=== PATIENT | female | born 1960 | race Caucasian/White ===

== ENCOUNTER 2022-11-22 07:32 | Outpatient (REF) | payer BC, SELFPAY ==
[2022-11-22 13:38] LABS: MANUAL DIFF FLAG NO
[2022-11-22 13:57] LABS: Basophils Absolute Auto 0.1 X10*3/uL (0.0-0.2); Eosinophils Absolute Auto 0.1 X10*3/uL (0.0-0.4); Eosinophils Percent Auto 1.4 % (0-4); Hematocrit 39.4 % (37.0-47.0); Hemoglobin 13.1 g/dl (12.0-16.0); Lymphocytes Absolute Auto 1.8 X10*3/uL (1.2-4.9); Lymphocytes Percent Auto 35.8 % (20-40); Mean Corpuscular HGB Conc 33.2 g/dl (31.0-35.0); Mean Corpuscular Hemoglobin 30.8 pg (27.0-33.0); Mean Corpuscular Volume 92.5 fL (80.0-98.0); Mean Platelet Volume 10.1 fL (9.4-12.3); Monocytes Absolute Auto 0.5 X10*3/uL (0.1-1.2); Monocytes Percent Auto 9.3 % (2-11); Neutrophils Absolute Auto 2.6 x10*3/uL (2.0-8.3); Neutrophils Percent Auto 52.5 % (45-73); Platelet Count 248 X10*3/uL (160-400); Red Blood Count 4.26 X10*6/uL (4.20-5.50); Red Cell Distribution Width 12.4 % (11.0-16.0)
[2022-11-22 14:14] LABS: Alanine Aminotransferase 14 U/L (0-31); Albumin Level 4.4 g/dL (3.5-5.0); Alkaline Phosphatase 77 U/L (39-117); Anion Gap 13 (12-20); Aspartate Amino Transferase 18 U/L (5-31); Bilirubin Total 0.4 mg/dL (0.0-1.0); Blood Urea Nitrogen 16 mg/dL (9-16); Calcium 9.9 mg/dL (8.4-10.2); Carbon Dioxide 27 mmol/L (22-29); Chloride 105 mmol/L (96-108); Cholesterol 228 mg/dL (<200); Estimated Glomerular Filt Rate > 60; Glucose Random 93 mg/dL (60-115); HDL Cholesterol 70 mg/dL (>40); LDL Cholesterol Calculated 148 mg/dL (<100); Potassium 3.7 mmol/L (3.3-5.1); Sodium 141 mmol/L (135-145); Total Protein 7.1 g/dL (6.5-8.0); Triglycerides 52 mg/dL (<150)
[2022-11-22 14:24] LABS: Vitamin D 25-OH Total 50.5 ng/mL (>30)
== END 2022-11-22 07:33 | disposition home or self-care (01) ==
LOC: HO.MANLDS 07:32
PROVIDERS: Visit Provider Internal Medicine
DX: Z00.00 Encounter for general adult medical examination without abnormal findings (principal)
CPT/HCPCS: 36415; 80053; 80061; 82306; 85025

== ENCOUNTER 2023-12-19 07:35 | Outpatient (REF) | payer BC, SELFPAY ==
[2023-12-19 13:43] LABS: MANUAL DIFF FLAG NO
[2023-12-19 13:48] LABS: Basophils Percent Auto 0.8 % (0-2); Eosinophils Absolute Auto 0.1 X10*3/uL (0.0-0.4); Eosinophils Percent Auto 2.4 % (0-4); Hematocrit 38.2 % (37.0-47.0); Hemoglobin 12.9 g/dl (12.0-16.0); Imm Gran Abs Auto 0.02 X10*3/uL (0.00-0.03); Imm Gran Pct Auto 0.4 % (0.0-0.4); Lymphocytes Absolute Auto 1.2 X10*3/uL (1.2-4.9); Lymphocytes Percent Auto 24.4 % (20-40); Mean Corpuscular HGB Conc 33.8 g/dl (31.0-35.0); Mean Corpuscular Hemoglobin 30.6 pg (27.0-33.0); Mean Corpuscular Volume 90.7 fL (80.0-98.0); Mean Platelet Volume 9.8 fL (9.4-12.3); Monocytes Absolute Auto 0.7 X10*3/uL (0.1-1.2); Monocytes Percent Auto 13.8 % (2-11); Neutrophils Percent Auto 58.2 % (45-73); Platelet Count 241 X10*3/uL (160-400); Red Blood Count 4.21 X10*6/uL (4.20-5.50); Red Cell Distribution Width 12.1 % (11.0-16.0); White Blood Count 5.1 X10*3/uL (4.8-10.8)
[2023-12-19 14:53] LABS: Alanine Aminotransferase 17 U/L (0-31); Albumin Level 4.4 g/dL (3.5-5.0); Alkaline Phosphatase 63 U/L (39-117); Anion Gap 17 (12-20); Aspartate Amino Transferase 25 U/L (5-31); Bilirubin Total 0.6 mg/dL (0.0-1.0); Blood Urea Nitrogen 14 mg/dL (9-16); Calcium 9.8 mg/dL (8.4-10.2); Carbon Dioxide 26 mmol/L (22-29); Chloride 102 mmol/L (96-108); Cholesterol 231 mg/dL (<200); Estimated Glomerular Filt Rate > 60; Glucose Random 68 mg/dL (60-115); HDL Cholesterol 55 mg/dL (>40); LDL Cholesterol Calculated 161 mg/dL (<100); Sodium 141 mmol/L (135-145); Total Protein 7.1 g/dL (6.5-8.0); Triglycerides 75 mg/dL (<150)
[2023-12-25 14:03] LABS: VITAMIN D (1,25 OH) D3 82 pg/mL; Vit D (1,25-Dihydroxy) Total 82 pg/mL (18-72); Vitamin D (1,25 OH) D2 <8 pg/mL
== END 2023-12-19 07:36 | disposition home or self-care (01) ==
LOC: HO.MANLDS 07:35
PROVIDERS: Visit Provider Internal Medicine
DX: Z00.00 Encounter for general adult medical examination without abnormal findings (principal)
CPT/HCPCS: 36415; 80053; 80061; 82652; 85025

== ENCOUNTER 2024-11-05 10:55 | Outpatient (REF) | payer BC, SELFPAY ==
--- OUTSIDE RECORDS SUMMARY | 2012-03-02 01:00 | XMS_ITS | Encounter Summary ---
Author Organization [facility] Address [address] [facility] [address] [place] [address] Phone Care Team Providers Care Multimedia Producer Name Role Phone Unavailable Primary Care Provider Unavailabl e Encounter Details Date Type Department Care Team (Late st Contact Info) Description 03/02/2012 Hospital Encounter [facility],Outside Imaging [address] [place] [address] System, Provider Not In, [place] [address] Social History Tobacco Use Types Packs/Day Years Used Date Smoking Tobacco: Never Smokeless Tobacco: Never Education Answer Date Recorded Are you interested in more education? Not on pat e 11/07/2023 Are you concerned about learning? Not on file 11/07/2023 No 11/07/2023 No 11/07/2023 Digital Access Answer Date Recorded No 11/07/2023 No 11/07/2023 Reliable internet access at home? Not on file 11/07/2023 Device with a working camera? Not on file Comments No Sex and Gender Information Value Date Recorded Sex Assigned at Not on file Legal Sex Female 9:45 PM EDT Gender Identity Not on file Sexual Orientation Not on file documented as of this encounter Plan of Treatment Upcoming Encounters Date Type Department Care Team (Late st Contact Info) Description 01/01/2025 1:20 PM EST Office Visit [facility] [address] [place] [phone] Vasiliy Barnhart, [address] [place] [address] documented as of this encounter Procedures Procedure Name Priority Date/Time Associated Diagnosis Comments BI MAMMOGRAM OUTSIDE (NO INTERPRETATION) Routine 03/02/2012 12:00 AM EST documented in this encounter Results * Mammogram Outside (No Interpretation) (03/02/2012 12:00 AM EST) Narrative SYSTEMGENERATED, DOCUMENTATION - 01/15/2018 9:04 AM EST This study is for PACS storage only and not for interpretation. us Provider Not In System PhD IMG OUTSIDE IMAGING W /OUT INTERPRETATION Final Result documented in this encounter Visit Diagnoses Not on filedocumented in this encounter Additional Source Comments The information contained in this document represents components of the legal health record. It is not the complete legal health record.[facility]
--- OUTSIDE RECORDS SUMMARY | 2024-11-05 12:18 | XMS_ITS | Encounter Summary ---
Author Organization [facility] Address [address] [address] Phone Care Team Providers Care Shipping Specialist Name Role Phone Aguilar Beckman DO Primary Care Provider [phone] Encounter Details Date Type Department Care Team ([facility] Contact Info) Description 10/28/2021 Transcribe Orders Virtual Department [address] [place] [address] Aguilar Beckman DO [address] [facility] [address] [email or web address] Breast screening (Primary Dx) Social History Tobacco Use Types Packs/Day Years Used Date Smoking Tobacco: Never Assessed Comments No Sex and Gender Information Value Date Recorded Sex Assigned at Not on file Legal Sex Female 9:45 PM EDT Gender Identity Not on file Sexual Orientation Not on file documented as of this encounter Plan of Treatment Upcoming Encounters Date Type Department Care Team (Late Contact Info) Description 01/01/2025 1:20 PM EST Office Visit [facility] [address] [place] [address] Vasiliy Barnhart DO [address] [place] [address] [email or web address] documented as of this encounter Visit Diagnoses Diagnosis Breast screening- Primary Breast screening, unspecified documented in this encounter Care Teams Shipping Specialist Relationship Specialty Start Date End Date Aguilar Beckman DO [email or web address] PCP - General Internal Medicine 10/17/17 documented as of this encounter Additional Source Comments The information contained in this document represents components of the legal health record. It is not the complete legal health record.[facility]
--- OUTSIDE RECORDS SUMMARY | 2024-11-05 12:18 | XMS_ITS | Clinical Summary ---
Author Organization [facility] Address [address] [address] Phone Care Team Providers Care Retail Presentation Specialist Name Role Phone Aguilar Beckman DO Primary Care Provider [phone] Allergies No known active allergies Medications alendronate (FOSAMAX) 70 MG tablet Take 70 mg by mouth every 7 days. 08/28/2024 Active Active Problems Problem Noted Date Diagnosed Date Osteoporosis 09/11/2024 Assessment & Plan (09/11/2024 9:29 AM EDT): The patient was diagnosed with osteoporosis on 04/10/2024. Risk factors for osteoporosis include age, menopause, family history and to a very minor degree 1 intra-articular corticosteroid injection. She has not had fractures or decrease in height. She does take calcium/vitamin D supplements. She has been treated with alendronate since April 2024. At this point we will request biochemical workup for secondary causes of osteoporosis. She was found to have elevated vitamin D 1, 25 dihydroxy elevated so I will work her out for hyperparathyroidism and screen for hyperphosphatemia. I did inform the patient that she has a very high risk of hip fracture. Alendronate also has good benefits for hip fracture reduction. However she also has osteoporosis of the lumbar spine and a more ideal medication will be romosozumab/Evenity. This medication administration is more labor-intensive because it is 2 injections/month and she will have to do this for 1 year. Studies have shown that using an anabolic hormone and then following up with an antiresorptive medication has best bone mineral density results. If she is willing we could prescribe this medication. Otherwise she can continue on alendronate. She is going to think about it. I have given her information to review. Encounters Date Type Department Care Team Description 10/09/2024 8:02 AM EDT - 10/09/2024 11:59 PM EDT Hospital Encounter [facility] [address] [place] [phone] Vasiliy Barnhart, DO Discharge Disposition: Home or Self Care 10/08/2024 8:04 AM EDT - 10/08/2024 11:59 PM EDT Hospital Encounter [facility] [address] [place] [phone] Vasiliy Barnhart, DO Discharge Disposition: Home or Self Care 10/07/2024 8:05 AM EDT - 10/07/2024 11:59 PM EDT Hospital Encounter [facility] [address] [place] [address] Vasiliy Barnhart, Discharge Disposition: Home or Self Care 09/11/2024 8:50 AM EDT Office Visit [facility] [address] [place] [address] Vasiliy Barnhart, Osteoporosis, unspecified osteoporosis type, unspecified pathological fracture presence (Primary Dx) from Last 3 Months Family History Medical History Relation Comments Coronary artery disease Father Kidney disease Father Emphysema Mother Multiple sclerosis Mother Osteoporosis Mother Transient ischemic attack Mother Relation Status Comments Father Mother Social History Tobacco Use Types Packs/Day Years [...] on file Sexual Orientation Not on file Last Filed Vital Signs Vital Sign Reading Time Taken Comments Blood Pressure 130/82 09/11/2024 8:44 AM EDT Pulse 77 09/11/2024 8:44 AM EDT Temperature 36.7 C (98.1 F) 11/25/2023 1:05 PM EDT Respiratory Rate - - Oxygen Saturation 99% 09/11/2024 8:44 AM EDT Inhaled Oxygen Concentration - - Weight 60.9 kg (134 lb 3.2 oz) 09/11/2024 8:44 A M EDT Height 162.8 cm (5' 4.09 ) 09/11/2024 8:44 AM ED T Body Mass Index 22.97 09/11/2024 8:44 AM EDT Plan of Treatment Upcoming Encounters Date Type Department Care Team (Late st Contact Info) Description 01/01/2025 1:20 PM EST Office Visit [facility] [address] [place] [address] [phone] Vasiliy Barnhart DO [address] [place] [phone] [email or web address] Health Maintenance Due Date Last Done Comments Adult Td,Tdap Booster 1961 LIPID PANEL 1961 DEPRESSION SCREENING 1973 HEPATITIS C SCREENING 12/23/1979 HIV ONE-TIME SCREENING (18-6 5 YEARS) 12/23/1979 PAP SMEAR 1982 COLOGUARD 2006 COLONOSCOPY 2006 COLORECTAL CANCER SCREENING 2006 FIT TEST 2006 FOBT 2006 SIGMOIDOSCOPY 2006 VIRTUAL COLONOSCOPY 2006 PNEUMOCOCCAL VACCINES (50+ years) (1 of 1 - PCV) 12/23/2011 ZOSTER VACCINES (1 of 2) 12/23/2011 INFLUENZA VACCINE (#1) 2024 COVID-19 VACCINE (2 - 2024-2 6 season) 2024 04/23/2020 MAMMOGRAM 04/09/2026 04/09/2024, 12/29/2017, 03/02/2012 RSV VACCINE (1 - 1-dose 75+ series) 2036 SMOKING STATUS SCREENING (On ce After 26 Yrs) Completed 09/11/2024 HEPATITIS A VACCINES Aged Out No long er eligible based on patient's age to complete this topic HIB VACCINES Aged Out No longer eligi ble based on patient's age to complete this topic MENINGOCOCCAL VACCINES (ACWY) Aged Out No longer eligible based on patient's age to complete this topic MENINGOCOCCAL VACCINES (B) Aged Out N o longer eligible based on patient's age to complete this topic Medical Devices Not on file Procedures Procedure Name Priority Date/Time Associated Diagnosis Comments 25-OH VITAMIN D Routine 10/09/2024 8:02 AM EDT Osteoporosis, unspecified osteoporosis type, unspecified pathological fracture presence P1NP (Procollagen I NT Polypeptide) Routine 10/09/2024 8:02 AM EDT Osteoporosis, unspecified osteoporosis type, unspecified pathological fracture presence 1-25-OH VITAMIN D Routine 10/09/2024 8:0 2 AM EDT Osteoporosis, unspecified osteoporosis type, unspecified pathological fracture presence COMPREHENSIVE METABOLIC PANEL Routine 10/09/2024 8:02 AM EDT Osteoporosis, unspecified osteoporosis type, unspecified pathological fracture presence PARATHYROID HORMONE (PTH) Routine 10/09/2024 8:02 AM EDT Osteoporosis, unspecified osteoporosis type, unspecified pathological fracture presence TSH WITH REFLEX Routine 10/09/2024 8:02 AM EDT Osteoporosis, unspecified osteoporosis type, unspecified pathological fracture presence TRYPTASE Routine 10/09/2024 8:02 AM EDT Osteoporosis, unspecified osteoporosis type, unspecified pathological fracture presence HOMOCYSTEINE Routine 10/09/2024 8:02 AM EDT Osteoporosis, unspecified osteoporosis type, unspecified pathological fracture presence COLLAGEN TYPE 1B-TELOPEPTIDE, BLOOD Routine 10/09/2024 8:02 AM EDT Osteoporosis, unspecified osteoporosis type, unspecified pathological fracture presence PHOSPHORUS Routine 10/09/2024 8:02 AM EDT Osteoporosis, unspecified osteoporosis type, unspecified pathological fracture presence MAGNESIUM Routine 10/09/2024 8:02 AM EDT Osteoporosis, unspecified osteoporosis type, unspecified pathological fracture presence CORTISOL, SALIVA Routine 10/08/2024 11:0 0 PM EDT Osteoporosis, unspecified osteoporosis type, unspecified pathological fracture presence TIMED URINE DATA Routine 10/08/2024 5:30 AM EDT CREATININE, 24 HR URINE Routine 10/08/2024 5:30 AM EDT Osteoporosis, unspecified osteoporosis type, unspecified pathological fracture presence CALCIUM, 24 HOUR URINE Routine 10/08/2024 5:30 AM EDT Osteoporosis, unspecified osteoporosis type, unspecified pathological fracture presence Phosphorus, 24 hr urine Routine 10/08/2024 5:30 AM EDT Osteoporosis, unspecified osteoporosis type, unspecified pathological fracture presence CORTISOL, SALIVA Routine 10/07/2024 11:1 2 PM EDT Osteoporosis, unspecified osteoporosis type, unspecified pathological fracture presence BI MAMMOGRAM SCREENING WITH TOMOSYNTHESIS WITH CAD (BILATERAL) Routine 04/09/2024 9:34 AM EST Breast screening from Last 3 Months or Most Recently Relevant to Health Maintenance Results * P1NP (PROCOLLAGEN I NT POLYPEPTIDE) (10/09/2024 8:02 AM EDT) PROCOLL I INTACT N 16 mcg/L [facility] Comment: (NOTE) REFERENCE VALUE Premenopausal: 19-83 Postmenopausal: 16-96 Blood 10/09/2024 8:02 AM EDT 10/09/2024 8:15 AM EDT us Vasiliy Barnhart DO LAB BLOOD ORDERABLES Final Resul t [facility] LAB MED/PATH [address] [place] [address] * (ABNORMAL) Collagen type 1b-telopeptide, blood (10/09/2024 8:02 AM EDT) Pathologist [facility] Collagen CTx 59(L) pg/mL [facility] LAB MED/PATH [facility]PER[facility] Comment: (NOTE) REFERENCE VALUE 148-967 (18-29 y) 150-635 (30-39 y) 131-670 (40-49 y) 183-1060 (50-59 y) 171-970 (60-69 y) 152-858 (>70 y) 136-689 (Premenopausal) 177-1015 (Postmenopausal) Flagging is based on the age-specific reference interval and not menopausal status. Blood 10/09/2024 8:02 AM EDT 10/09/2024 8:15 AM EDT Vasiliy Barnhart DO LAB BLOOD ORDERABLES Final Resul t [facility] LAB MED/PATH [address] [place] [address] * (ABNORMAL) Comprehensive metabolic panel (10/09/2024 8:02 AM EDT) Pathologist [facility] SODIUM 137 133 - 146 mmol/L [facility] POTASSIUM 4.2 3.3 - 5.1 mmol/L [facility] Comment:Specimen slightly he molyzed, result may be falsely elevated. CHLORIDE 101 96 - 108 mmol/L [facility] CO2 26 21 - 35 mmol/L [facility] BUN 17 6 - 19 mg/dL [facility] CREATININE 0.60 0.5 - 1.5 mg/dL [facility] GLUCOSE 101(H) 70 - 99 mg/dL [facility] ALBUMIN 4.7 3.9 - 4.8 g/dL [facility] TOTAL PROTEIN 7.6 6.5 - 8.0 g/dL [facility] CALCIUM 9.9 8.4 - 10.3 mg/dL [facility] ALKALINE PHOSPHATASE 57 39 - 117 U/L [facility] TOTAL BILIRUBIN 0.5 0.0 - 1.2 mg/dL [facility] AST 26 0 - 37 U/L [facility] ALT 14 0 - 40 U/L [facility] GLOBULIN 2.9 1 - 4.8 g/dL [facility] EGFR 101 >59 mL/min/1.7 3m2 [facility] Comment:Estimated glomerular filtration rate calculated using the CKD-EPI refit equation. ANION GAP 14 10 - 20 mmol/L [facility] Blood 10/09/2024 8:02 AM EDT 10/09/2024 8:14 AM EDT us Vasiliy Barnhart LAB BLOOD ORDERABLES Final Resul t Performing Organization Address City/[facility]/ZIP Co de Phone Number [address] [address] * TSH with reflex (10/09/2024 8:02 AM EDT) TSH 2.59 0.27 - 4.20 uIU/mL [facility] Blood 10/09/2024 8:02 AM EDT 10/09/2024 8:14 AM EDT us Vasiliy Barnhart LAB BLOOD ORDERABLES Final Resul t Performing Organization Address City/[facility]/ZIP Co de Phone Number [address] [address] * Tryptase (10/09/2024 8:02 AM EDT) TRYPTASE 1.5 <11.5 ng/mL [facility] T LAB MED/PATH [address] DR Blood 10/09/2024 8:02 AM EDT 10/09/2024 8:15 AM EDT Vasiliy Barnhart LAB BLOOD ORDERABLES Final Resul t Performing Organization Address City/[facility]/ZIP Co de Phone Number [facility] LAB MED/PATH [address] [place] [address] * 1-25-OH vitamin D (10/09/2024 8:02 AM EDT) Pathologist [facility] 1,25 (OH) 2 Vitamin D3 29 18 - 78 pg/mL [facility] LAB MED/PATH [facility] Comment: (NOTE) ADDITIONAL INFORMATION This test was developed and its performance characteristics determined by [facility] in a manner consistent with CLIA requirements. This test has not been cleared or approved by the U.S. Food and Drug Administration. Blood 10/09/2024 8:02 AM EDT 10/09/2024 8:15 AM EDT [facility] Final Resul t [facility] LAB MED/PATH [address] [place] [address] * 25-OH vitamin D (10/09/2024 8:02 AM EDT) Pathologist [facility] 25 OH VIT D (TOTAL) 34 30 - 60 ng/mL [facility] Blood 10/09/2024 8:02 AM EDT 10/09/2024 8:14 AM EDT [facility] BLOOD [facility]ABLES Final Resul t [facility] [address] [place] [address] * Phosphorus (10/09/2024 8:02 AM EDT) Pathologist [facility] PHOSPHORUS 2.9 2.7 - 4.5 mg/dL [facility] Blood 10/09/2024 8:02 AM EDT 10/09/2024 8:14 AM EDT Vasiliy Palmerasio DO LAB BLOOD ORDERABLES Final Resul t Performing Organization Address City/[facility]/ZIP Co de Phone Number [address] [address] * Parathyroid hormone (PTH) (10/09/2024 8:02 AM EDT) PARATHYROID HORMONE 52 15 - 65 pg/mL [facility] Blood 10/09/2024 8:02 AM EDT 10/09/2024 8:16 AM EDT [facility] Final Resul t Performing Organization Address [facility] Co de Phone Number [address] [address] * Magnesium (10/09/2024 8:02 AM EDT) MAGNESIUM 2.3 1.6 - 2.6 mg/dL [facility] Blood 10/09/2024 8:02 AM EDT 10/09/2024 8:14 AM EDT [facility]OD ORDERABLES Final Resul t Performing Organization Address [facility] Co de Phone Number [address] [address] * Homocysteine (10/09/2024 8:02 AM EDT) HOMOCYSTEINE, TOTAL 9.1 0 - 14.2 umol/L [facility] Blood 10/09/2024 8:02 AM EDT 10/09/2024 8:14 AM EDT [facility] LAB BLOOD ORDERABLES Final Resul t Performing Organization Address City/[facility]/ZIP Co de Phone Number [address] [address] * Cortisol, saliva (10/08/2024 11:00 PM EDT) Only the most recent of2 resultswithin the time period is included. CORTISOL,SALIVA Test component not applicable or not reported. ng/dL [facility] LAB MED/PATH [facility] AM CORTISOL Test component not applicable or not reported. ng/dL [facility] MED/PATH [facility]PERIOR PM CORTISOL Test component not applicable or not reported. ng/dL [facility] MED/PATH [facility] MIDNIGHT CORTISOL <50 <100 ng/dL [facility]/PATH [facility] Comment: (NOTE) ADDITIONAL INFORMATION This test was developed and its performance characteristics determined by [facility] in a manner consistent with CLIA requirements. This test has not been cleared or approved by the U.S. Food and Drug Administration. Other (Oral) 10/08/2024 11:0 0 PM EDT 10/09/2024 8:19 AM EDT Vasiliy Barnhart DO BODY FLUIDS AND STOOLS ORDERABLE S Final Result Performing Organization Address City/[facility]/ZIP Co de Phone Number [facility]/PATH [address] [place] [address] * Timed urine data (10/08/2024 5:30 AM EDT) COLLECTION DATA URINE [facility] TOTAL VOLUME 700 mL [facility] 10/08/2024 5:30 AM EDT 10/09/2024 8:21 AM EDT Vasiliy Barnhart DO URINE ORDERABLES Final Result Performing Organization Address City/[facility]/ZIP Co de Phone Number [facility] [address] [place], [place] [phone] * Phosphorus, 24 hr urine (10/08/2024 5:30 AM EDT) URINE PHOSPHORUS 104.5 mg/dL [facility] PHOSPHORUS OUTPUT 731.5 400 - 1,300 mg/total output [facility] Urine (Urine) 10/08/2024 5:3 0 AM EDT 10/09/2024 8:21 AM EDT us Vasiliy Barnhart DO URINE ORDERABLES Final Result Performing Organization Address [facility] de Phone Number [address] [address] * (ABNORMAL) Calcium, 24 hour urine (10/08/2024 5:30 AM EDT) URINE CALCIUM 48.7 mg/dL [facility] CALCIUM OUTPUT 341(H) 100 - 300 mg/total output [facility] Urine (Urine) 10/08/2024 5:3 0 AM EDT 10/09/2024 8:21 AM EDT us Vasiliy Barnhart DO URINE ORDERABLES Final Result Performing Organization Address [facility] de Phone Number [address] [address] * Creatinine, 24 hr urine (10/08/2024 5:30 AM EDT) URINE CREATININE 141 mg/dL [facility] CREATININE OUTPUT 987 600 - 1,800 mg/total output [facility] Urine (Urine) 10/08/2024 5:3 0 AM EDT 10/09/2024 8:21 AM EDT Vasiliy Barnhart DO URINE ORDERABLES Final Result Performing Organization Address [facility] de Phone Number [address] [address] * BI MAMMOGRAM SCREENING WITH TOMOSYNTHESIS WITH CAD (BILATERAL) (04/09/2024 9:34 AM EST) Anatomical Region Laterality Modality Breast Left, Breast Right, Breast Bilateral Bila teral Mammography 04/10/2024 10:1 3 AM EST Impressions 04/10/2024 10:14 AM EST No mammographic evidence of malignancy in either breast. Annual screening mammography is recommended. BI-RADS 1 NEGATIVE The patient will be notified of the results and recommendations. Narrative 04/10/2024 10:14 AM EST BI MAMMOGRAM SCREENING WITH TOMOSYNTHESIS WITH CAD (BILATERAL) Additional patient information: Screening. COMPARISON: Comparison is made with relevant prior imaging. Breast composition: There are scattered areas of fibroglandular density. FINDINGS: No abnormal masses, suspicious calcifications, or other significant findings are identified mammographically in either breast. There has been no significant interval change. Procedure Note Elke Ewing MD - 04/10/2024 BI MAMMOGRAM SCREENING WITH TOMOSYNTHESIS WITH CAD (BILATERAL) Additional patient information: Screening. COMPARISON: Comparison is made with relevant prior imaging. Breast composition: There are scattered areas of fibroglandular density. FINDINGS: No abnormal masses, suspicious calcifications, or other significantfindings are identified mammographically in either breast. There has been no significant interval change. IMPRESSION: No mammographic evidence of malignancy in either breast. Annual screening mammography is recommended. BI-RADS 1 NEGATIVE The patient will be notified of the results and recommendations. us Aguilar A Rk DO IMG MG EXAMS Final Result from Last 3 Months or Most Recently Relevant to Health Maintenance Insurance [employer] [facility] [employer] [facility] [employer] [facility] [employer] [facility] [employer] Care Teams Retail Presentation Specialist Relationship Specialty Start Date End Date Aguilar Beckman DO [email or web address] PCP - General Internal Medicine 10/17/17 Additional Source Comments The information contained in this document represents components of the legal health record. It is not the complete legal health record.[facility]
--- OUTSIDE RECORDS SUMMARY | 2024-11-05 12:18 | XMS_ITS | Encounter Summary ---
Author Organization [facility] Address [address] [facility] [address] [place] [address] Phone Care Team Providers Care Web Application Dev Specialist Name Role Phone Aguilar Beckman DO Primary Care Provider [phone] Encounter Details Date Type Department Care Team ([facility] Contact Info) Description 10/03/2018 Ancillary Orders Virtual Department [address] [place] [phone] Lacey Larsen PA-C [address] [place] [phone] Breast screening Social History Tobacco Use Types Packs/Day Years Used Date Smoking Tobacco: Never Assessed Comments No Sex and Gender Information Value Date Recorded Sex Assigned at Not on file Legal Sex Female 9:45 PM EDT Gender Identity Not on file Sexual Orientation Not on file documented as of this encounter Plan of Treatment Upcoming Encounters Date Type Department Care Team ([facility] Contact Info) Description 01/01/2025 1:20 PM EST Office Visit [facility] [address] [place] [phone] Vasiliy Barnhart DO [address] [place] [phone] documented as of this encounter Visit Diagnoses Diagnosis Breast screening Breast screening, unspecified documented in this encounter Care Teams Web Application Dev Specialist Relationship Specialty Start Date End Date Aguilar Beckman DO PCP - General Internal Medicine 10/17/17 documented as of this encounter Additional Source Comments The information contained in this document represents components of the legal health record. It is not the complete legal health record.[facility]
--- OUTSIDE RECORDS SUMMARY | 2024-11-05 12:18 | XMS_ITS | Encounter Summary ---
Author Organization [facility] Address [address] [facility] [address] [place] [phone] Phone Care Team Providers Care Sock Boarder Name Role Phone Aguilar Beckman DO Primary Care Provider [phone] Encounter Details Date Type Department Care Team (Late Contact Info) Description 10/31/2023 Procedure Pass [facility], [address] [address] Social History Tobacco Use Types Packs/Day Years Used Date Smoking Tobacco: Never Smokeless Tobacco: Never Education Answer Date Recorded Are you interested in more education? Not on pat e 06/03/2022 Are you concerned about learning? Not on file 06/03/2022 No 06/03/2022 No 06/03/2022 Digital Access Answer Date Recorded No 07/04/2022 No 07/04/2022 No 07/04/2022 Reliable internet access at home? Not on file 07/04/2022 Device with a working camera? Not on [...] 1:20 PM EST Office Visit [facility] [address] [place] [address] Vasiliy Barnhart DO [address] [place] [address] [email or web address] documented as of this encounter Visit Diagnoses Not on filedocumented in this encounter Care Teams Sock Boarder Relationship Specialty Start Date End Date JassonAguilar vallejo DO Diann [email or web address] PCP - General Internal Medicine 10/17/17 documented as of this encounter Additional Source Comments The information contained in this document represents components of the legal health record. It is not the complete legal health record.[facility]
--- OUTSIDE RECORDS SUMMARY | 2024-11-05 12:18 | XMS_ITS | Encounter Summary ---
Author Organization [facility] Address [address] [facility] [address] [place] [address] Phone Care Team Providers Care Cut Off Man Name Role Phone Aguilar Beckman DO Primary Care Provider [phone] Encounter Details Date Type Department Care Team (Late Contact Info) Description 01/15/2018 Ancillary Orders [facility],Outside Imaging [address] [place] [address] System, Provider Not In, [place] [address] Social History Tobacco Use Types Packs/Day Years [...] 1:20 PM EST Office Visit [facility] [address] [place] [address] Vasiliy Barnhart DO [address] [place] [address] documented as of this encounter Results * Mammogram Outside (No Interpretation) (03/02/2012 12:00 AM EST) Narrative SYSTEMGENERATED, DOCUMENTATION - 01/15/2018 9:04 AM EST This study is for PACS storage only and not for interpretation. us Provider Not In System PhD IMG OUTSIDE IMAGING W /OUT INTERPRETATION Final Result documented in this encounter Visit Diagnoses Not on filedocumented in this encounter Care Teams Cut Off Man Relationship Specialty Start Date End Date JassonAguilar vallejo Diann [email or web address] PCP - General Internal Medicine 10/17/17 documented as of this encounter Additional Source Comments The information contained in this document represents components of the legal health record. It is not the complete legal health record.[facility]
--- OUTSIDE RECORDS SUMMARY | 2024-11-05 12:18 | XMS_ITS | Encounter Summary ---
Author Organization [facility] Address [address] [facility] [address] [place] [address] Phone Care Team Providers Care Military Pilot Name Role Phone Aguilar Beckman DO Primary Care Provider [phone] Encounter Details Date Type Department Care Team ([facility] Contact Info) Description 10/04/2017 Ancillary Orders Virtual Department [address] [place] [address] Lacey Larsen PA-C [address] [place] [address] Visit for screening mammogram; Encounter for general adult medical examination without abnormal findings Social History Tobacco Use Types Packs/Day Years Used Date Smoking Tobacco: Never Assessed Comments Unknown Sex and Gender Information Value Date Recorded Sex Assigned at Not on file Legal Sex Female 9:45 PM EDT Gender Identity Not on file Sexual Orientation Not on file documented as of this encounter Plan of Treatment Upcoming Encounters Date Type Department Care Team ([facility] Contact Info) Description 01/01/2025 1:20 PM EST Office Visit [facility] [address] [place] [address] Vasiliy Barnhart DO [address] [place] [phone] documented as of this encounter Results * BI MAMMOGRAM SCREENING WITH TOMOSYNTHESIS WITH CAD (BILATERAL) (12/29/2017 8:29 AM EST) Anatomical Region Laterality Modality Breast Left, Breast Right, Breast Bilateral Bila teral Mammography 01/16/2018 6:30 PM EST Impressions 01/16/2018 6:34 PM EST No mammographic change indicative of malignancy. Routine screening is recommended. BI-RADS CATEGORY: 2 - Benign finding. DENSITY: The breast tissue is heterogeneously dense, an appearance which lowers the sensitivity of mammography. POS - [id number] Narrative 01/16/2018 6:34 PM EST FINDINGS: Bilateral full-field digital screening mammography is obtained and read in conjunction with computer-aided detection. 3-D tomosynthesis as well as 2-D C view imaging is also performed. Comparison is made with 03/02/2012. Breasts are composed of heterogeneously dense fibroglandular tissue which limits mammographic sensitivity. Scattered benign-appearing punctate microcalcifications. Minimal vascular calcifications. No new suspicious mass, suspicious microcalcifications, architectural distortion, focal skin thickening, or new asymmetry is detected. Procedure Note Candelaria Izaguirre MD - 01/16/2018 FINDINGS: Bilateral full-field digital screening mammography is obtained and read inconjunction with computer-aided detection. 3-D tomosynthesis as well as2-D C view imaging is also performed. Comparison is made with03/02/2012. Breasts are composed of heterogeneously dense fibroglandular tissue whichlimits mammographic sensitivity. Scattered benign-appearing punctatemicrocalcifications. Minimal vascular calcifications. No new suspiciousmass, suspicious microcalcifications, architectural distortion, focal skinthickening, or new asymmetry is detected. IMPRESSION: No mammographic change indicative of malignancy. Routine screening isrecommended. BI-RADS CATEGORY: 2 - Benign finding. DENSITY: The breast tissue is heterogeneously dense, an appearance whichlowers the sensitivity of mammography. POS - CDHMAM2 May Suzie MURRELL IMG MG EXAMS Final Result documented in this encounter Visit Diagnoses Diagnosis Visit for screening mammogram Encounter for general adult medical examination without abnormal findings Visit for screening mammogram Encounter for general adult medical examination without abnormal findings documented in this encounter Care Teams Military Pilot Relationship Specialty Start Date End Date Aguilar Beckman DO [email or web address] PCP - General Internal Medicine 10/17/17 documented as of this encounter Additional Source Comments The information contained in this document represents components of the legal health record. It is not the complete legal health record.[facility]
--- OUTSIDE RECORDS SUMMARY | 2024-11-05 12:18 | XMS_ITS | Encounter Summary ---
Author Organization [facility] Address [address] [facility] [address] [place] [address] Phone Care Team Providers Care Store Shopper Name Role Phone Aguilar Beckman DO Primary Care Provider [phone] Encounter Details Date Type Department Care Team (Late Contact Info) Description 10/25/2022 Transcribe Orders Virtual Department [address] [place] [address] Aguilar Beckman DO [address] [facility] [place] [address] [place] [address] [email or web address] Right hip pain (Primary Dx) Social History Tobacco Use Types Packs/Day Years Used Date Smoking Tobacco: Never Assessed Education Answer Date Recorded Are you interested [...] 1:20 PM EST Office Visit [facility] [address] [place] [address] Vasiliy Barnhart DO [address] [place] [address] [email or web address] documented as of this encounter Visit Diagnoses Diagnosis Right hip pain- Primary Pain in joint, pelvic region and thigh documented in this encounter Care Teams Store Shopper Relationship Specialty Start Date End Date Aguilar Beckman DO [email or web address] PCP - General Internal Medicine 10/17/17 documented as of this encounter Additional Source Comments The information contained in this document represents components of the legal health record. It is not the complete legal health record.[facility]
--- OUTSIDE RECORDS SUMMARY | 2024-11-05 12:18 | XMS_ITS | Encounter Summary ---
Author Organization [facility] Address [address] [address] Phone Care Team Providers Care Therapeutic Massage Technician Name Role Phone Aguilar Beckman DO Primary Care Provider [phone] Reason for Referral * MRI/CAT Scan - Authorized Specialty Diagnoses / Procedures Referred By Contac t Referred To Contact Radiology Diagnoses Right hip pain Left hip pain Procedures CT Pelvis Aguilar Beckman DO Phone: tel: fax: [email or web address] Referral ID Status Reason Start Date Expiration Date V isits Requested Visits Authorized [id number] Authorized 11/29/2023 11/28/2024 1 1 Encounter Details Date Type Department Care Team (Late st Contact Info) Description 11/28/2023 Transcribe Orders Virtual Department [address] [place] [address] Aguilar Beckman DO [address] [facility] [place] [address] [email or web address] Right hip pain (Primary Dx); Left hip pain Social History Tobacco Use Types Packs/Day Years [...] 1:20 PM EST Office Visit [facility] [address] [place] [address] Vasiliy Barnhart DO [address] [place] [address] [email or web address] Scheduled Orders Name Type Priority Associated Diagnoses Orde r Schedule CT Pelvis Imaging Routine Right hip pain Left hip pain Expected: 11/29/2023, Expires: 11/28/2024 documented as of this encounter Visit Diagnoses Diagnosis Right hip pain- Primary Pain in joint, pelvic region and thigh Left hip pain Pain in joint, pelvic region and thigh documented in this encounter Care Teams Therapeutic Massage Technician Relationship Specialty Start Date End Date Aguilar Beckman DO [email or web address] PCP - General Internal Medicine 10/17/17 documented as of this encounter Additional Source Comments The information contained in this document represents components of the legal health record. It is not the complete legal health record.[facility]
--- OUTSIDE RECORDS SUMMARY | 2024-11-05 12:18 | XMS_ITS | Encounter Summary ---
Author Organization [facility] Address [address] [facility] [address] [place] [address] Phone Care Team Providers Care Solar Sales Representative Name Role Phone Kathy Mckenzie DO Primary Care Provider [phone] Encounter Details Date Type Department Care Team ([facility] Contact Info) Description 10/31/2023 Transcribe Orders Virtual Department [address] [place] [address] Kathy Mckenzie DO [address] [facility] [place] [address] [place] [address] [email or web address] Breast screening (Primary Dx); Encounter for screening for osteoporosis Social History Tobacco Use Types Packs/Day Years [...] Upcoming Encounters Date Type Department Care Team ([facility] Contact Info) Description 01/01/2025 1:20 PM EST Office Visit [facility] [address] [place] [address] Vasiliy Barnhart DO [address] [place] [address] [email or web address] documented as of this encounter Results * BD DXA AXIAL (SPINE) WITH HIP (04/10/2024 7:56 AM EST) Anatomical Region Laterality Modality Bone Density Bone Density 04/10/2024 7:46 AM EST Impressions 04/11/2024 8:54 AM EST Interpretation: Osteoporosis. Narrative 04/11/2024 8:54 AM EST Referred By: KATHY MCKENZIE Indications: Osteoporosis Scanner: Right Skills A with serial# of [id number] located at [facility] Bone Density Scan (DXA) 04/10/24 Details of prior DXA scans are available by clicking View Image BMD T- Z- Skeletal Site gm/cm2 score score BMD Change Since Prior Scan ------ ----- ----- PA Spine (L1-L4) 0.730 -2.90 -1.30 N/A Total Hip (Left) 0.674 -2.20 -1.10 N/A Femoral Neck (Left) 0.509 -3.10 -1.70 N/A Total Hip (Right) 0.600 -2.80 -1.70 N/A Femoral Neck (Right) 0.466 -3.50 -2.10 N/A ------ ----- ----- * Denotes significant change when >= 0.022 g/cm2 for the spine, 0.027 g/cm2 for the total hip, 0.029 g/cm2 for the femoral neck. Interpretation: Osteoporosis. Technical Quality: The PA Spine scan was of marginal quality because of scoliosis (which can decrease or increase BMD). FRAX: A FRAX(r) score is not provided because the patient has osteoporosis, which is generally an indication for treatment. Additional Information: -World Health Organization criteria classify adults based on lowest T-score at PA spine, hip or forearm: Normal (T-score >= -1.0), Osteopenia (T-score between -1 and -2.5), or Osteoporosis (T-score <= -2.5). At [facility], T-scores are compared to peak bone density of a young white gender matched reference population. - For premenopausal women and men under the age of 50, Z-scores (comparison to age, gender, and ethnicity matched reference population) are used: Above expected range for age (Z-score >= 2.0), Within expected range of age (Z-score 1.9 to -1.9), or Below expected range for age (Z-score <= -2.0). - The Bone Health and Osteoporosis Foundation recommends that treatment be considered in men aged more than 50 years and in postmenopausal women with ANY of the following: Prior hip or vertebral fractures; T-score of <= -2.5 at the PA spine or hip; or 10 year fracture probability by FRAX of >= 3% for the hip or >= 20% for major osteoporotic fracture. - The FRAX algorithm (https://www.josep.ac.uk/FRAX/tool.aspx) is designed to predict 10-year fracture risk in treatment-naive adults between the ages of 40 and 90. It is not intended to be used in those receiving pharmacologic osteoporosis treatment. - Including race/ethnicity in the generation of T- or Z-scores or in the FRAX calculation is complicated, and currently undergoing active review to ensure that we can give patients the best information on their risk of fracture. -Some prior studies may not be compatible with our comparison software. -Click on View Full Report to see subsequent pages with images and prior bone density results. Reviewed By: Gokul Ledbetter MD on 04/11/2024 08:54:02 Procedure Note Gokul Ledbetter MD - 04/11/2024 Referred By: KATHY MCKENZIE Indications: Osteoporosis Scanner: Right Skills A with serial# of [id number] located at [facility] Bone Density Scan (DXA) 04/10/24 Details of prior DXA scans are available by clicking View Image BMD T- Z- Skeletal Site gm/cm2 score score BMD Change Since Prior Scan ------ ----- PA Spine (L1-L4) 0.730 -2.90 -1.30 N/A Total Hip (Left) 0.674 -2.20 -1.10 N/A Femoral Neck (Left) 0.509 -3.10 -1.70 N/A Total Hip (Right) 0.600 -2.80 -1.70 N/A Femoral Neck (Right) 0.466 -3.50 -2.10 N/A ------ ----- * Denotes significant change when >= 0.022 g/cm2 for the spine, 0.027g/cm2 for the total hip, 0.029 g/cm2 for the femoral neck. Interpretation: Osteoporosis. Technical Quality: The PA Spine scan was of marginal quality because of scoliosis (which can decrease or increase BMD). FRAX: A FRAX(r) score is not provided because the patient hasosteoporosis, which is generally an indication for treatment. Additional Information: -World Health Organization criteria classify adults based on lowestT-score at PA spine, hip or forearm: Normal (T-score >= -1.0), Osteopenia (T-score between -1 and -2.5), or Osteoporosis (T-score <= -2.5). At [facility], T-scores are compared to peak bone density of a young white gender matched reference population. - For premenopausal women and men under the age of 50, Z-scores(comparison to age, gender, and ethnicity matched reference population) are used:Above expected range for age (Z-score >= 2.0), Within expected range of age (Z-score 1.9 to -1.9), or Below expected range for age (Z-score <= -2.0). - The Bone Health and Osteoporosis Foundation recommends that treatment be considered in men aged more than 50 years and in postmenopausal women with ANY of the following: Prior hip or vertebral fractures; T-score of <= -2.5 at the PA spine or hip; or 10 year fracture probability by FRAX of >= 3%for the hip or >= 20% for major osteoporotic fracture. - The FRAX algorithm (https://www.josep.ac.uk/FRAX/tool.aspx) is designed to predict 10-year fracture risk in treatment-naive adultsbetween the ages of 40 and 90. It is not intended to be used in those receiving pharmacologic osteoporosis treatment. - Including race/ethnicity in the generation of T- or Z-scores or in the FRAX calculation is complicated, and currently undergoing active review to ensure that we can give patients the best information on their risk of fracture. -Some prior studies may not be compatible with our comparison software. -Click on View Full Report to see subsequent pages with images and prior bone density results. Reviewed By: Gokul Ledbetter MD on 04/11/2024 08:54:02 IMPRESSION: Interpretation: Osteoporosis. us Kathy A Bigda DO IMG BD BONE DENSITY DEXA Final R esult * BI MAMMOGRAM SCREENING WITH TOMOSYNTHESIS WITH [...] notified of the results and recommendations. us Kathy Mckenzie DO IMG MG EXAMS Final Result documented in this encounter Visit Diagnoses Diagnosis Breast screening- Primary Breast screening, unspecified Encounter for screening for osteoporosis Breast screening Breast screening, unspecified Encounter for screening for osteoporosis documented in this encounter Care Teams Solar Sales Representative Relationship Specialty Start Date End Date Kathy Mckenzie DO PCP - General Internal Medicine 10/17/17 documented as of this encounter Additional Source Comments The information contained in this document represents components of the legal health record. It is not the complete legal health record.[facility]
[2024-11-05 14:59] LABS: Cholesterol 234 mg/dL (<200); HDL Cholesterol 59 mg/dL (>40); Triglycerides 79 mg/dL (<150)
== END 2024-11-05 10:56 | disposition home or self-care (01) ==
LOC: HO.MANLDS 10:55
PROVIDERS: Visit Provider Internal Medicine
DX: Z13.6 Encounter for screening for cardiovascular disorders (principal); Z82.49 Family history of ischemic heart disease and other diseases of the circulatory system
CPT/HCPCS: 36415; 80061; 82306